=== PATIENT | female | born 1965 | race Caucasian/White ===

== ENCOUNTER 2016-08-20 01:02 | Emergency (ER) | payer SELFPAY ==
[~2016-08-20] VITALS: Ht 167.6 cm; Wt 54.0 kg
[~2016-08-20 01:02] MED LIST: ALPR-138 PO; ESCI10TA PO; HYDR-3129 PO
[2016-08-20 01:06] VITALS: BP 161/95; PULSE 95; RESP 22; TEMP 98.2; O2SAT 100
[2016-08-20] MEDS ORDERED: OLANZapine ODT 10 MG TAB PO ONE (01:15)
[2016-08-20] MEDS ORDERED: NEURONTIN (01:15)
[2016-08-20] MEDS ORDERED: REMERON (01:15)
[2016-08-20] MEDS ORDERED: ADDERALL (01:15)
[2016-08-20] MEDS ORDERED: XANAX (01:15)
[2016-08-20] MEDS ORDERED: STRATTERA (01:15)
--- NOTE | 2016-08-20 01:26 | PD ---
HPI Chief Complaint: Psychiatric Symptoms Time Seen by Provider: 01:10 Travel History International Travel<30 days: No Contact w/Intl Traveler<30days: No Traveled to known affect area: No History of Present Illness HPI This is a 50 year old female who presents to the emergency department having been under arrest by police for an outstanding warrant who reports that she has been out of her medications for several days. She says she is out of her straterra, aderall, xanax, and remeron. She says she had trouble sleeping last night. PFSH Past Medical History Bipolar Disorder: Yes Anxiety: Yes Depression: Yes Diminished Hearing: No Musculoskeletal: Yes (2 HERNIATED DISKS - LOWER BACK, SCIATIC NERVE PAIN) Immunizations Current: Yes Influenza Vaccination: No ?: Unknown LMP: JULY Menopausal: No : 2 Para: 0 Miscarriage: 1 : 1 Dilation and Curettage (D&C): Yes Past Surgical History Other Surgery: Yes (BREAST AUGMENTATION) Social History Alcohol Use: Yes (DAILY GLASS OF WINE) Tobacco Use: Yes (1.5 PPD ) Substance Use: Yes (MARIJUANA ) Allergies-Medications (Allergen,Severity, Reaction): Coded Allergies: Penicillin (Verified Allergy, Severe, Rash, 08/20/16) Reported Meds & Prescriptions Reported Meds & Active Scripts Active Reported [Xanax] [Neurontin] [Remeron] [Strattera] [Adderall] Review of Systems Except as stated in HPI: all other systems reviewed are Neg Physical Exam Narrative GENERAL: Disheveled SKIN: Focused skin assessment warm and dry. HEAD: Atraumatic. Normocephalic. EYES: Pupils equal and round. No injection or drainage. ENT: Moist mucous membranes NECK: Trachea midline. CARDIOVASCULAR: Regular rate and rhythm. No murmur appreciated. RESPIRATORY: Clear to auscultation. Breath sounds equal bilaterally. GASTROINTESTINAL: Abdomen soft, non-tender, nondistended. MUSCULOSKELETAL: No obvious deformities. NEUROLOGICAL: Awake and alert. No obvious cranial nerve deficits. Moving all extremities. PSYCHIATRIC: Pressured speech, tangential Data Data Last Documented VS Vital Signs Date Time Temp Pulse Resp B/P Pulse Ox O2 Delivery O2 Flow Rate FiO2 08/20/16 01:06 98.2 95 22 161/95 100 Orders Complete Blood Count With Diff (08/20/16 01:13) Comprehensive Metabolic Panel (08/20/16 01:13) ^ Insert Iv (08/20/16 01:13) Olanzapine Odt (Zyprexa Zydis Odt) (08/20/16 01:15) Lorazepam Inj (Ativan Inj) (08/20/16 01:30) Labs Laboratory Tests Test 08/20/16 01:23 White Blood Count 7.1 TH/MM3 Red Blood Count 3.73 MIL/MM3 Hemoglobin 12.5 GM/DL Hematocrit 36.0 % Mean Corpuscular Volume 96.7 FL Mean Corpuscular Hemoglobin 33.6 PG Mean Corpuscular Hemoglobin 34.8 % Concent Red Cell Distribution Width 13.1 % Platelet Count 311 TH/MM3 Mean Platelet Volume 8.0 FL Neutrophils (%) (Auto) 57.1 % Lymphocytes (%) (Auto) 33.2 % Monocytes (%) (Auto) 8.1 % Eosinophils (%) (Auto) 1.3 % Basophils (%) (Auto) 0.3 % Neutrophils # (Auto) 4.0 TH/MM3 Lymphocytes # (Auto) 2.3 TH/MM3 Monocytes # (Auto) 0.6 TH/MM3 Eosinophils # (Auto) 0.1 TH/MM3 Basophils # (Auto) 0.0 TH/MM3 CBC Comment DIFF FINAL Differential Comment Sodium Level 139 MEQ/L Potassium Level 3.8 MEQ/L Chloride Level 105 MEQ/L Carbon Dioxide Level 25.2 MEQ/L Anion Gap 9 MEQ/L Blood Urea Nitrogen 17 MG/DL Creatinine 0.52 MG/DL Estimat Glomerular Filtration 126 ML/MIN Rate Random Glucose 72 MG/DL Calcium Level 9.4 MG/DL Total Bilirubin 0.6 MG/DL Aspartate Amino Transf 26 U/L (AST/SGOT) Alanine Aminotransferase 21 U/L (ALT/SGPT) Alkaline Phosphatase 103 U/L Total Protein 7.7 GM/DL Albumin 4.3 GM/DL [facility] Medical Decision Making Medical Screen Exam Complete: Yes Emergency Medical Condition: Yes Interpretation(s) Afebrile, mild tachycardia, hypertension No leukocytosis Electrolytes are reassuring Differential Diagnosis Chelly, bipolar disorder, substance intoxication Narrative Course This is a 50-year-old female who presents to the emergency department in police custody requesting refills on her medications. Her medications are all controlled substances. She does mention that she's on seizure medication but can't tell me the name of it or the dosage. She was placed on a monitor and an IV was established. She was given a milligram of Ativan for agitation and some pressured speech. Electrolytes are reassuring. Patient is going to assisted where her psychiatrist will be available to assess her. I think this is a safe disposition plan. Otherwise I don't think she has any active medical issues. Patient was discharged in police custody. Diagnosis Primary Impression: Adjustment disorder Qualified Code: F43.22 - Adjustment disorder with anxious mood Patient Instructions: General Instructions Med/Other Pt SpecificInfo: No Change to Meds Disposition: [address] LAW ENFORCEMNT Condition: Stable Joann Chauhan MD Aug 20, 2016 01:26
[2016-08-20] MEDS ORDERED: LORazepam 2 MG/ML VIAL IV PUSH ONE (01:30)
[2016-08-20 01:36] LABS: BASOPHIL % 0.3 % (0.0-2.0); EOSINOPHIL # 0.1 TH/MM3 (0-0.4); EOSINOPHIL % 1.3 % (0.0-4.0); HEMO FLAGS DIFF FINAL; LYMPH % 33.2 % (9.0-44.0); LYMPHOCYTE # 2.3 TH/MM3 (1.0-4.8); MEAN CELL VOLUME 96.7 FL (80.0-100.0); MEAN CORPUSCULAR HEMOGLOBIN 33.6 PG (27.0-34.0); MEAN CORPUSCULAR HGB CONC 34.8 % (32.0-36.0); MONO % 8.1 % (0.0-8.0); NEUT % 57.1 % (16.0-70.0); PLATELET COUNT 311 TH/MM3 (150-450); RED BLOOD COUNT 3.73 MIL/MM3 (4.00-5.30); RED CELL DISTRIBUTION WIDTH 13.1 % (11.6-17.2); WHITE BLOOD COUNT 7.1 TH/MM3 (4.0-11.0)
[2016-08-20 02:04] LABS: ALT (GPT) 21 U/L (10-53); ANION GAP 9 MEQ/L (5-15); AST (GOT) 26 U/L (15-37); BICARBONATE 25.2 MEQ/L (21.0-32.0); BLOOD UREA NITROGEN 17 MG/DL (7-18); CHLORIDE 105 MEQ/L (98-107); GLOMERULAR FILTRATION RATE 126 ML/MIN (>89); POTASSIUM 3.8 MEQ/L (3.5-5.1); SODIUM (NA) 139 MEQ/L (136-145)
[2016-08-20 02:06] LABS: ALKALINE PHOSPHATASE 103 U/L (45-117); TOTAL BILIRUBIN ADULT 0.6 MG/DL (0.2-1.0)
== END 2016-08-20 02:24 ==
LOC: NEPE 01:02
DX: F43.22 Adjustment disorder with anxiety (principal); R45.1 Restlessness and agitation; F17.200 Nicotine dependence, unspecified, uncomplicated; Z86.59 Personal history of other mental and behavioral disorders; Z87.39 Personal history of other diseases of the musculoskeletal system and connective tissue
CPT/HCPCS: 80053; 85025; 96374; 99282; J2060